=== PATIENT | female | born 1975 | race Caucasian/White ===

== ENCOUNTER 2023-08-18 11:27 | Emergency (ER) | payer OTHER, SELFPAY ==
[2023-08-18 11:34] VITALS: BP 179/115
[2023-08-18 11:49] VITALS: BMI 31.8
--- NOTE | 2023-08-18 11:50 | ED.GENMED ---
History of Present Illness
General
Chief Complaint: Breathing Problem
Time Seen by Provider: 08/18/23 11:46
Travel History
Have you had any contact with someone who has COVID-19?: No
Do you have any symptoms of coronavirus? Fever > 100 degrees, chills, cough, shortness of breath, sore throat, loss of taste or smell, muscle aches, or headache?: No
History of Present Illness
History of Present Illness:
48-year-old female with history of hypertension presents to the emergency department for evaluation of shortness of breath and dry cough over the past 10 days. She has no previously diagnosed history of asthma but states she has 'allergies' ever
since moving to [place] 5 to 6 years ago. Denies any fevers, chills, sweats, cold or flu symptoms, or purulent sputum. Has been using an albuterol inhaler without much relief.
Review of Systems
Review of Systems
Allergies reviewed?: Yes
All Other Systems: ROS reviewed and negative except as documented in HPI and ROS
Phy Exam
Physical Exam
Physical Exam:
GEN: Well appearing, NAD, WDWN
Eyes: PERRLA, EOMs intact, no scleral icterus
HENT: NCAT, oral mucosa moist
Lungs: Coarse expiratory wheezes heard short with prolonged expiratory phase mildly tachypneic with no accessory muscle use
Cardiac: RRR, no M/R/G, no peripheral edema. Radial pulses 2+ bilat
Abdomen: S, NT, ND, NABS, no masses or hepatosplenomegaly
Neuro: AO x 3
MSK: No gross deformity or ecchymosis. No edema. No digital clubbing
Skin: No rashes, petechiae. Normal color, no pallor or jaundice.
Psych: Calm, cooperative, proper hygiene
Scores
Heart Failure Risk
Heart Failure Risk Score: Not Applicable
Course
Orders/Labs/Results
Orders:
Orders
08/18/23 11:50
Ipratropium/Albuterol Sulfate [Duoneb] 6 ml INH R NOW ONE
08/18/23 12:24
CR Chest - 2 Views Urgent
Comment:
Reason For Exam: SOB
08/18/23 13:26
Prednisone [Deltasone] 50 mg PO NOW STA
Vital Signs
Initial and Last Documented VS:
Initial Vital Signs
Temp Pulse Resp BP Pulse Ox
98.2 F 121 16 179/115 96
08/18/23 11:34 08/18/23 11:34 08/18/23 11:34 08/18/23 11:34 08/18/23 11:34
Last Documented Vital Signs
Temp Pulse Resp BP Pulse Ox
98.2 F 110 16 153/92 95
08/18/23 11:34 08/18/23 13:43 08/18/23 13:43 08/18/23 13:43 08/18/23 13:43
MDM/Problems Addressed
MDM/Problems Addressed:
Patient's symptoms are consistent with bronchospasm/reactive airway disease. She likely does have underlying asthma based on her presentation. She has no fevers or signs or symptoms of infection, radiology read noted suggesting potential left
lower lobe pneumonia however given lack of focal adventitious lung sounds, fevers, or purulent sputum do not feel this patient requires antibiotics. Will cover with a course of steroids, provided with nebulizer for home use
*Critical Care Note
Total Time (30-74mins, 75-104mins- exclusive of procedures): Not Applicable
ED Attending Note
-
Portions of this chart may have been created with voice recognition software.� Occasional wrong word or��sound alike� substitutions may have occurred due to the inherent limitations of voice recognition software.
Discharge Plan
Departure
Patient Disposition: Home (Routine Discharge)
Date of Disposition: 08/18/23
Time of Disposition: 13:27
Patient with high blood pressure during this ER visit?: Yes
Discharge Problem:
Acute bronchospasm
Instructions: Asthma, Adult ED
Prescriptions:
New
albuterol sulfate 2.5 mg /3 mL (0.083 %) solution for nebulization
2.5 mg inhalation QID PRN (Reason: bronchospasm) Qty: 90 0RF
prednisone 20 mg tablet
40 mg PO DAILY Qty: 9 0RF
Rx Instructions:
40mg PO qd x 3d then 20mg PO qd x 3d
No Action
losartan 50 mg Tablet
50 mg PO HS
alprazolam 0.5 mg Tablet
0.25 mg PO BID PRN (Reason: anxiety)
ibuprofen 200 mg Tablet
600 mg PO DAILYPRN PRN (Reason: mild pain)
albuterol sulfate 90 mcg/actuation Hfa Aerosol Inhaler
2 puff INHALATION R Q4HPRN PRN (Reason: sob)
Patient Comments:
08/18/2023, per pt., within the past 24 hrs pt. has been using this inhaler Q2HPRN but normally it is Q4HPRN.
escitalopram oxalate 10 mg Tablet
10 mg PO HS
Referrals:
Erika Vyas CRNP [Family Provider] -
Activity Restrictions/Additional Instructions:
Start the prednisone tomorrow, as we gave you a dose here in the ER today
Interventions
Interventions:
*Risk Screen - Suicide Last Done: 08/18/23 11:34
*General Assessment Last Done: 08/18/23 11:34
*Neglect/Abuse Screening Last Done: 08/18/23 11:34
ED- Fall Risk Assessment Last Done: 08/18/23 11:49
*ED COVID-19 Vaccine History Last Done: 08/18/23 11:34
*Nursing Disposition Last Done: 08/18/23 13:55
ED- Cardiac Assessment Last Done: 08/18/23 11:49
ED- Pulmonary Assessment Last Done: 08/18/23 11:49
Discharge Date and Time
Discharge Date/Time: 08/18/23 13:56
Print Language: ISRAELI
[2023-08-18] MEDS: DUONEB 6 ML INH (11:51)
[2023-08-18 13:43] VITALS: BP 153/92
[2023-08-18] MEDS: DELTASONE 50 MG PO (13:43)
== END 2023-08-18 13:56 | disposition home or self-care (01) ==
LOC: EMR 11:27
PROVIDERS: EMERGENCY PHYSICIAN Emergency Medicine; FAMILY PHYSICIAN Nurse Practitioner Family
DX: J98.01 Acute bronchospasm (principal); I10 Essential (primary) hypertension
CPT/HCPCS: 99283; 94640; 71046